=== PATIENT | female | born 1975 | race Caucasian/White ===

== ENCOUNTER 2017-05-01 23:15 | Emergency (ER) | payer MEDICARE ==
--- NOTE | ~2017-05-01 | CR252 ---
[facility] A Service of [facility] RADIOLOGY TEXT RESULTS PATIENT: HERB MICHAEL LOCATION: [facility] : 73 UNIT #: [id number] AGE: [address]: Seda Barrett APRN SEX: F ORDER DR: [id number] [facility] [address] [place], [place] [address] [id number] E MR#: [id number] Acc #: [id number] NAME: HERB MICHAEL : 1975 SEX: F STUDY DATE/TIME: 05/02/2017 UNIT: [facility] ROOM: STUDY DESCRIPTION: CR Tibia and Fibula 2 Views Lt Attending Physician: Seda Barrett A.P.R.N. Ordering Physician: Seda Barrett A.P.R.N. Primary Care Physician: Artur Damon M.D. MEDICAL IMAGING REPORT This report is preliminary unless electronic signature is present EXAM Left tib-fib 05/02 at 02:11 INDICATIONS Pain and redness and swelling of the calf for 3 days. Soft tissue infection due to IV drug abuse injections. FINDINGS There is no evidence of fracture, dislocation, or radiopaque foreign body. IMPRESSION Normal tibia and fibula. Dictated by... Ernesto Sharif Jr., M.D. THIS IS AN ELECTRONICALLY VERIFIED REPORT Ernesto Sharif Jr., M.D. at 05/03/2017 4:24 AM TOYA/judi TD: 05/02/2017 08:01 JOB #: [id number] MEDICAL IMAGING REPORT Page 1 of 1 COPY
[~2017-05-01 23:15] MED LIST: ACETAMINOPHEN PO; ADVAIR 100-501 EACH IH; ALBUTEROL0.83 MG/ML IH; ALDOMET250 MG PO; ATARAX PO; CARDIZEM CD120 MG PO; CIPRO PO; COMBIVENT INH14.7 GM INH; COMBIVENT14.7 GM; COMBIVENT14.7 GM INH; CYMBALTA; FLEXERIL PO; FLEXERIL10 M1; FLEXERIL10 MG PO; LORTAB 10-5001 EACH; LORTAB 10-5001 EACH PO; PREDNISONE PO; PREDNISONE10 MG PO; SEROQUEL300 MG; SEROQUEL300 MG PO; XANAX1 MG; ZITHROMAX1 G/PKT PO; ZOLOFT100 MG PO
[2017-05-02 00:57] LABS: BASOPHIL% 0.2 % (0-2.5); EOSINOPHIL# 0.4 X10e3 (0-0.7); EOSINOPHIL% 4.4 % (0.0-7.0); LYMPHOCYTE# 1.7 X10e3 (1.0-3.5); MEAN CELL VOLUME 81.6 FL (83-96); MEAN CORPUSCULAR HEMOGLOBIN 27.2 PG (28-34); MEAN CORPUSCULAR HGB CONC 33.3 g/dL (30-36); MEAN PLATELET VOLUME 10.1 FL (6.5-11.5); MONOCYTE# 0.6 X10e3 (0-1.0); MONOCYTE% 6.1 % (3.0-12.0); NEUTROPHIL# 6.8 X10e3 (1.5-7.1); NEUTROPHIL% 71.3 % (40-75); PLATELET COUNT 152 X10e3 (140-420); RED BLOOD COUNT 4.78 X10e (3.90-5.30); RED CELL DISTRIBUTION WIDTH 13.6 % (11.0-15.5); WHITE BLOOD COUNT 9.5 X10e3 (4.0-10.5)
[2017-05-02 01:00] LABS: DIFF IND NO
[2017-05-02 01:28] LABS: ALBUMIN SERUM 3.3 g/dL (3.5-5.0); BILIRUBIN, DIRECT 0.2 mg/dL (0.0-0.2); BILIRUBIN,INDIRECT 0.2 mg/dL (0.0-0.9); BILIRUBIN,TOTAL 0.4 mg/dL (0.2-2.0); BUN/CREATININE RATIO 15.71; CALCIUM SERUM 8.3 mg/dL (8.4-10.2); CREATININE SERUM 0.7 mg/dL (0.6-1.4); GLOM FILT RATE Estimated 106.9 mL/min (>60); POTASSIUM 3.5 mmol/L (3.5-5.1); PROTEIN TOTAL SERUM 6.9 g/dL (6.0-8.3)
[2017-05-02 01:40] LABS: PARTIAL THROMBOPLASTIN TIME 31.9 SECONDS (23.5-31.3); PROTHROMBIN TIME (PATIENT) 10.5 SECONDS (10.0-11.7)
[2017-05-02 03:13] LABS: URINE SOURCE CLEAN CATCH
[2017-05-02 03:14] LABS: CULTURE INDICATED? YES; URBCS1 AUWI 0-2 /[HPF] (0-2); URINE APPEARANCE CLOUDY; URINE BACTERIA AUWI 1+ (NEGATIVE); URINE BLOOD TRACE (NEG); URINE COLOR DK YELLOW; URINE GLUCOSE NEG (NEG); URINE KETONE NEG (NEG); URINE LEUKOCYTE ESTERASE 2+ (NEG); URINE NITRATE NEG (NEG); URINE PH 5.5 (5-8); URINE PROTEIN TRACE (NEG); URINE SPECIFIC GRAVITY 1.024 (1.003-1.035); URINE SQUAMOUS EPITHELIAL CELL MOD /[HPF]; UWBCS1 AUWI 25-50 (0-5)
[2017-05-02 03:27] LABS: AMPHETAMINE POS (NEG); BARBITURATES NEG (NEG); BENZODIAZEPINES NEG (NEG); COCAINE NEG (NEG); MARIJUANA NEG (NEG); OPIATES POS (NEG); TRICYCLIC ANTIDEPRESSANTS NEG (NEG); U METHADONE POS (NEG)
[2017-05-02 03:28] LABS: URINE BILIRUBIN NEG (NEG)
== END 2017-05-02 03:05 | disposition home or self-care (01) ==
LOC: CED 23:15
PROVIDERS: Emergency Medicine; Nurse Practitioner
DX: L03.116 Cellulitis of left lower limb (principal); F19.10 Other psychoactive substance abuse, uncomplicated; J45.909 Unspecified asthma, uncomplicated; J44.9 Chronic obstructive pulmonary disease, unspecified; F31.9 Bipolar disorder, unspecified; F17.210 Nicotine dependence, cigarettes, uncomplicated; Z88.1 Allergy status to other antibiotic agents; Z79.899 Other long term (current) drug therapy
CPT/HCPCS: 36415; 73590; 80048; 80076; 80307; 81003; 84703; 85025; 85610; 85730; 87040; 87077; 87086; 87186; 99283